=== PATIENT | male | born 1950 | race Caucasian/White ===

== ENCOUNTER 2017-05-03 08:31 | Inpatient (IN) | payer OTHER ==
[2017-05-03] MEDS: SOD CHLORIDE 0.9% 1,000 ML IV ×2 (08:00→18:58)
[2017-05-03] MEDS: LACTATED RINGER'S 1,000 ML IV* (08:00)
[2017-05-03] MEDS: CEFAZOLIN 2 GM/50 ML (PMX) 50 ML IVPB (08:00)
[~2017-05-03 08:31] MED LIST: ROCURONIUM 50 MG INJ
[2017-05-03] MEDS: TRANEXAMIC ACID 1,000 MG in DEXTROSE 5% 100 ML IVPB (10:00)
[2017-05-03] MEDS: TRANEXAMIC ACID 1,000 MG in DEXTROSE 5% 90 ML IV (10:00)
[2017-05-03] MEDS ORDERED: MIDAZOLAM 1 MG/ML 2 ML INJ ×2 (10:03→10:04)
[2017-05-03] MEDS ORDERED: ROCURONIUM 50 MG INJ ×2 (10:03→11:11)
[2017-05-03] MEDS ORDERED: PROPOFOL 20 ML (10:03)
[2017-05-03] MEDS ORDERED: CEFAZOLIN 1 GM INJ ×2 (10:03→13:48)
[2017-05-03] MEDS ORDERED: ROPIVACAINE 0.5 % 30 ML VIAL (10:04)
[2017-05-03] MEDS ORDERED: morphine SULFATE/PF (10 MG/10 ML) INJ (10:04)
[2017-05-03] MEDS ORDERED: VANCOMYCIN 1 GM (PMX) 250 ML (10:09)
[2017-05-03] MEDS ORDERED: PHENYLephrine (100 MCG/ML) 5ML SYG ×3 (10:20→11:03)
[2017-05-03] MEDS: VANCOMYCIN 1 GM INJ ×3 (10:30→14:00)
[2017-05-03] MEDS: TOBRAMYCIN 1.2 GM POWDER ×3 (10:30→14:00)
[2017-05-03] MEDS ORDERED: ONDANSETRON 4 MG INJ (10:43)
[2017-05-03] MEDS ORDERED: DEXAMETHASONE 4 MG/ML 1 ML INJ (10:43)
[2017-05-03] MEDS ORDERED: KETOROLAC 30 MG INJ (10:43)
[2017-05-03] MEDS ORDERED: METOCLOPRAMIDE 10 MG INJ (10:43)
[2017-05-03] MEDS ORDERED: ACETAMINOPHEN 1000MG/100ML IV 100 ML (11:11)
[2017-05-03] MEDS ORDERED: HETASTARCH 6% NACL 500 ML (11:11)
[2017-05-03] MEDS ORDERED: PHENYLephrine 10 MG INJ ×2 (11:27→14:39)
[2017-05-03] MEDS ORDERED: HYDROmorphONE 0.5 MG/0.5 ML SYG IV (12:00)
[2017-05-03] MEDS ORDERED: OXYCODONE/ACETAMINOPHEN (5/325) TAB PO ×2 (12:00)
[2017-05-03] MEDS ORDERED: NALOXONE (0.4 MG/ML) INJ IV ×2 (12:00→17:30)
[2017-05-03] MEDS ORDERED: EPHEDrine SULFATE 50 MG/5 ML SYG IV (12:00)
[2017-05-03] MEDS ORDERED: ONDANSETRON 4 MG INJ IV ×2 (12:00)
[2017-05-03] MEDS ORDERED: ALBUMIN HUMAN 5% 250 ML IV (12:00)
[2017-05-03] MEDS ORDERED: LABETALOL HCL 20MG INJ IV (12:00)
[2017-05-03] MEDS ORDERED: FENTAnyl 50 MCG/ML VIAL IV ×3 (12:00)
[2017-05-03] MEDS ORDERED: morphine 2 MG INJ IV ×2 (12:00)
[2017-05-03] MEDS ORDERED: NALBUPHINE HCL (10 MG/1 ML) INJ IV (12:00)
[2017-05-03] MEDS ORDERED: MEPERIDINE 25 MG INJ IV (12:00)
[2017-05-03] MEDS ORDERED: DIPHENHYDRAMINE 50 MG INJ IV ×2 (12:00)
[2017-05-03] MEDS ORDERED: HYDROCODONE/APAP (5/325) TAB PO (12:00)
[2017-05-03] MEDS ORDERED: ACETAMINOPHEN 500 MG TAB PO (12:00)
[2017-05-03] MEDS ORDERED: METOCLOPRAMIDE 10 MG INJ IV (12:00)
[2017-05-03] MEDS ORDERED: HYDROmorphONE (0.2 MG/ML) 10ML SYG IV ×3 (12:00)
[2017-05-03] MEDS: POLYMYXIN/BACITRACIN 1L IRRIG IRR (12:09)
[2017-05-03] MEDS: ROPIVACAINE 0.2% 60 ML, CLONIDINE 100 MCG, EPINEPHrine 0.3 MG, SOD CHLORIDE 0.9% 50 ML IRR (12:30)
[2017-05-03] MEDS ORDERED: ALBUMIN HUMAN 25% 100 ML (13:51)
[2017-05-03] MEDS ORDERED: SUGAMMADEX SODIUM 200 MG/2 ML VIAL IV (15:36)
[2017-05-03] MEDS ORDERED: oxyCODONE 5 MG TAB PO ×2 (17:30)
[2017-05-03] MEDS ORDERED: KETOROLAC 15 MG INJ IV (17:30)
[2017-05-03] MEDS ORDERED: VANCOMYCIN 1 GM (PMX) 250 ML IVPB (18:00)
[2017-05-03] MEDS: ACETAMINOPHEN 1000MG/100ML IV 100 ML IVPB (18:58)
[2017-05-03] MEDS ORDERED: hydrALAzine 20 MG INJ IV (19:30)
[2017-05-03] MEDS ORDERED: DEXTROSE 50% 50 ML SYRINGE IV ×2 (20:00)
[2017-05-03] MEDS ORDERED: GLUCAGON 1 MG INJ IM (20:00)
[2017-05-03] MEDS ORDERED: GLUCOSE GEL 15 GRAM TUBE PO ×2 (20:00)
[2017-05-03] MEDS ORDERED: GLUCOSE GEL 15 GRAM TUBE BUCCAL (20:00)
[2017-05-03] MEDS: CEFAZOLIN 1 GM/50 ML (PMX) 50 ML IVPB (20:15)
[2017-05-03] MEDS: INSULIN ASPART [NOVOLOG] 3 ML PEN SC (20:15)
[2017-05-03] MEDS: ACCU-CHEK XX (22:04)
[2017-05-03] MEDS: HYDROmorphONE 0.5 MG/0.5 ML SYG IV (23:42)
[2017-05-04] MEDS: ACETAMINOPHEN 1000MG/100ML IV 100 ML IVPB ×3 (01:47→18:47)
[2017-05-04] MEDS: CEFAZOLIN 1 GM/50 ML (PMX) 50 ML IVPB (03:13)
[2017-05-04] MEDS: HYDROmorphONE 0.5 MG/0.5 ML SYG IV (05:12)
[2017-05-04 05:29] LABS: ADD MAN DIFF? NO
[2017-05-04] MEDS: SOD CHLORIDE 0.9% 1,000 ML IV ×2 (05:33→18:03)
[2017-05-04 05:35] LABS: WHITE BLOOD COUNT 7.4 10^3/ul (4.8-10.8)
[2017-05-04 05:35] LABS: HEMATOCRIT 26.7 % (42.0-52.0); LYMPHOCYTES # 0.7 10^3/ul (0.8-2.9); LYMPHOCYTES % 9.8 % (15.0-51.0); MEAN CORPUSCULAR HEMOGLOBIN 28.6 pg (29.0-33.0); MEAN CORPUSCULAR HGB CONC 33.7 g/dl (32.0-37.0); MEAN CORPUSCULAR VOLUME 84.8 fl (82.0-101.0); MONOCYTE # 0.3 10^3/ul (0.3-0.9); MONOCYTES % 4.3 % (0.0-11.0); NEUTROPHIL # 6.3 10^3/ul (1.6-7.5); NEUTROPHILS % 85.8 % (39.0-77.0); PLATELET COUNT 180 10^3/UL (140-415); POSITIVE DIFF @See below; RED BLOOD COUNT 3.15 10^6/ul (4.70-6.10); RED CELL DISTRIBUTION WIDTH 13.1 % (11.5-14.5)
[2017-05-04 05:53] LABS: ANION GAP 14 (8-16); BLOOD UREA NITROGEN 23 mg/dl (7-20); CALCIUM 7.8 mg/dl (8.4-10.2); CARBON DIOXIDE 21 mmol/L (21-31); CHLORIDE 107 mmol/L (97-110); CREATININE 1.05 mg/dl (0.61-1.24); GLUCOSE 148 mg/dl (70-220); POTASSIUM 4.4 mmol/L (3.5-5.1); SODIUM 138 mmol/L (135-144)
[2017-05-04 05:55] LABS: INR 1.19; PROTIME 15.3 Sec (11.9-14.9); PT RATIO 1.2
[2017-05-04 07:23] LABS: HEMOGLOBIN A1C 5.7 % (0-5.9)
[2017-05-04] MEDS: INSULIN ASPART [NOVOLOG] 3 ML PEN SC ×4 (07:50→21:00)
[2017-05-04] MEDS: DOCUSATE SODIUM 100 MG CAP PO ×2 (08:35→20:22)
[2017-05-04] MEDS: ASPIRIN (EC) 325 MG TAB PO (08:35)
[2017-05-04] MEDS: oxyCODONE 5 MG TAB PO ×2 (11:49→16:25)
[2017-05-04] MEDS ORDERED: VANCOMYCIN IV PER PHARMACY XX (12:00)
[2017-05-04] MEDS: LIDOCAINE 1% (MPF) 5 ML VIAL SC (14:35)
[2017-05-04] MEDS: SOD CHLORIDE 0.9% 100 ML (15:20)
[2017-05-04] MEDS: VANCOMYCIN 1 GM 250 ML IVPB ×2 (16:13→18:48)
[2017-05-04] MEDS ORDERED: ONDANSETRON 4 MG INJ IV (17:30)
[2017-05-05] MEDS: ACETAMINOPHEN 1000MG/100ML IV 100 ML IVPB ×3 (01:35→18:15)
[2017-05-05] MEDS: HYDROmorphONE 1 MG/ML SYG IV (01:35)
[2017-05-05] MEDS: VANCOMYCIN 1 GM 250 ML IVPB ×2 (01:36→13:18)
[2017-05-05] MEDS: ACCU-CHEK XX (02:00)
[2017-05-05] MEDS: SOD CHLORIDE 0.9% 1,000 ML IV (04:38)
[2017-05-05 05:20] LABS: ADD MAN DIFF? NO
[2017-05-05 05:37] LABS: BASOPHILS % 0.2 % (0.0-2.0); HEMATOCRIT 26.2 % (42.0-52.0); HEMOGLOBIN 8.9 g/dl (14.0-18.0); LYMPHOCYTES # 1.2 10^3/ul (0.8-2.9); LYMPHOCYTES % 20.4 % (15.0-51.0); MEAN CORPUSCULAR HEMOGLOBIN 28.7 pg (29.0-33.0); MEAN CORPUSCULAR VOLUME 84.5 fl (82.0-101.0); MEAN PLATELET VOLUME 10.2 fl (7.4-10.4); MONOCYTE # 0.4 10^3/ul (0.3-0.9); MONOCYTES % 6.8 % (0.0-11.0); NEUTROPHIL # 4.3 10^3/ul (1.6-7.5); NEUTROPHILS % 72.3 % (39.0-77.0); PLATELET COUNT 171 10^3/UL (140-415); RED CELL DISTRIBUTION WIDTH 13.2 % (11.5-14.5)
[2017-05-05 05:37] LABS: WHITE BLOOD COUNT 5.9 10^3/ul (4.8-10.8)
[2017-05-05 06:15] LABS: ANION GAP 11 (8-16); BLOOD UREA NITROGEN 20 mg/dl (7-20); CALCIUM 8.4 mg/dl (8.4-10.2); CARBON DIOXIDE 26 mmol/L (21-31); CHLORIDE 109 mmol/L (97-110); CREATININE 1.06 mg/dl (0.61-1.24); GLUCOSE 112 mg/dl (70-220); INR 1.13; POTASSIUM 3.9 mmol/L (3.5-5.1); PROTIME 14.7 Sec (11.9-14.9); PT RATIO 1.1; SODIUM 142 mmol/L (135-144)
[2017-05-05 06:17] LABS: MAGNESIUM 1.9 mg/dl (1.7-2.5)
[2017-05-05 06:17] LABS: PHOSPHORUS 2.8 mg/dl (2.5-4.9)
[2017-05-05] MEDS: INSULIN ASPART [NOVOLOG] 3 ML PEN SC ×4 (07:50→21:00)
[2017-05-05] MEDS: ASPIRIN (EC) 325 MG TAB PO (08:43)
[2017-05-05] MEDS: DOCUSATE SODIUM 100 MG CAP PO ×2 (08:43→20:11)
[2017-05-05] MEDS: oxyCODONE 5 MG TAB PO ×2 (12:14→22:35)
[2017-05-06 01:14] LABS: VANCOMYCIN,TROUGH 17.3 ug/ml (10.0-20.0)
[2017-05-06] MEDS: VANCOMYCIN 1 GM 250 ML IVPB (01:23)
[2017-05-06] MEDS: ACCU-CHEK XX (01:28)
[2017-05-06] MEDS: ACETAMINOPHEN 1000MG/100ML IV 100 ML IVPB ×3 (01:30→18:24)
[2017-05-06 05:17] LABS: ADD MAN DIFF? NO
[2017-05-06 05:19] LABS: BASOPHILS % 0.4 % (0.0-2.0); HEMATOCRIT 26.5 % (42.0-52.0); LYMPHOCYTES # 1.5 10^3/ul (0.8-2.9); LYMPHOCYTES % 30.3 % (15.0-51.0); MEAN CORPUSCULAR HEMOGLOBIN 28.6 pg (29.0-33.0); MEAN CORPUSCULAR VOLUME 84.1 fl (82.0-101.0); MEAN PLATELET VOLUME 9.9 fl (7.4-10.4); MONOCYTE # 0.4 10^3/ul (0.3-0.9); MONOCYTES % 7.2 % (0.0-11.0); NEUTROPHIL # 3.1 10^3/ul (1.6-7.5); NEUTROPHILS % 61.7 % (39.0-77.0); PLATELET COUNT 167 10^3/UL (140-415); RED BLOOD COUNT 3.15 10^6/ul (4.70-6.10); RED CELL DISTRIBUTION WIDTH 13.4 % (11.5-14.5)
[2017-05-06 05:43] LABS: INR 1.09; PROTIME 14.2 Sec (11.9-14.9); PT RATIO 1.1
[2017-05-06 06:02] LABS: ANION GAP 13 (8-16); BLOOD UREA NITROGEN 15 mg/dl (7-20); CALCIUM 8.7 mg/dl (8.4-10.2); CARBON DIOXIDE 26 mmol/L (21-31); CHLORIDE 107 mmol/L (97-110); CREATININE 0.96 mg/dl (0.61-1.24); GLUCOSE 99 mg/dl (70-220); POTASSIUM 3.5 mmol/L (3.5-5.1); SODIUM 142 mmol/L (135-144)
[2017-05-06] MEDS: INSULIN ASPART [NOVOLOG] 3 ML PEN SC ×4 (08:59→20:40)
[2017-05-06] MEDS: ASPIRIN (EC) 325 MG TAB PO (09:19)
[2017-05-06] MEDS: DOCUSATE SODIUM 100 MG CAP PO ×2 (09:19→20:40)
[2017-05-06] MEDS: VANCOMYCIN 750 MG in DEXTROSE 5% 150 ML IVPB (14:28)
[2017-05-06] MEDS: oxyCODONE 5 MG TAB PO ×2 (16:27→20:43)
[2017-05-07] MEDS: VANCOMYCIN 750 MG in DEXTROSE 5% 150 ML IVPB ×2 (00:26→12:45)
[2017-05-07] MEDS: ACCU-CHEK XX (01:53)
[2017-05-07] MEDS: ACETAMINOPHEN 1000MG/100ML IV 100 ML IVPB ×3 (03:05→18:52)
[2017-05-07] MEDS: oxyCODONE 5 MG TAB PO ×3 (03:10→22:53)
[2017-05-07 05:36] LABS: ADD MAN DIFF? NO
[2017-05-07 05:37] LABS: BASOPHILS % 0.4 % (0.0-2.0); EOSINOPHILS # 0.3 10^3/ul (0.0-0.5); EOSINOPHILS % 5.6 % (0.0-7.0); HEMATOCRIT 28.8 % (42.0-52.0); HEMOGLOBIN 9.7 g/dl (14.0-18.0); LYMPHOCYTES # 1.5 10^3/ul (0.8-2.9); LYMPHOCYTES % 27.5 % (15.0-51.0); MEAN CORPUSCULAR HEMOGLOBIN 28.2 pg (29.0-33.0); MEAN CORPUSCULAR HGB CONC 33.7 g/dl (32.0-37.0); MEAN CORPUSCULAR VOLUME 83.7 fl (82.0-101.0); MEAN PLATELET VOLUME 9.6 fl (7.4-10.4); MONOCYTE # 0.5 10^3/ul (0.3-0.9); MONOCYTES % 8.8 % (0.0-11.0); NEUTROPHIL # 3.1 10^3/ul (1.6-7.5); NEUTROPHILS % 57.1 % (39.0-77.0); PLATELET COUNT 196 10^3/UL (140-415); RED BLOOD COUNT 3.44 10^6/ul (4.70-6.10); RED CELL DISTRIBUTION WIDTH 13.4 % (11.5-14.5)
[2017-05-07 05:37] LABS: WHITE BLOOD COUNT 5.3 10^3/ul (4.8-10.8)
[2017-05-07 05:58] LABS: INR 1.11; PROTIME 14.5 Sec (11.9-14.9); PT RATIO 1.1
[2017-05-07 06:02] LABS: ANION GAP 13 (8-16); BLOOD UREA NITROGEN 12 mg/dl (7-20); CALCIUM 8.9 mg/dl (8.4-10.2); CARBON DIOXIDE 27 mmol/L (21-31); CHLORIDE 104 mmol/L (97-110); CREATININE 0.94 mg/dl (0.61-1.24); GLUCOSE 104 mg/dl (70-220); POTASSIUM 3.5 mmol/L (3.5-5.1); SODIUM 140 mmol/L (135-144)
[2017-05-07] MEDS: ASPIRIN (EC) 325 MG TAB PO (09:08)
[2017-05-07] MEDS: INSULIN ASPART [NOVOLOG] 3 ML PEN SC ×4 (09:09→20:26)
[2017-05-07] MEDS: DOCUSATE SODIUM 100 MG CAP PO ×2 (12:45→20:26)
[2017-05-08] MEDS: VANCOMYCIN 750 MG in DEXTROSE 5% 150 ML IVPB ×2 (01:20→13:13)
[2017-05-08] MEDS: ACCU-CHEK XX (02:30)
[2017-05-08] MEDS: ACETAMINOPHEN 1000MG/100ML IV 100 ML IVPB ×2 (03:11→12:45)
[2017-05-08] MEDS: oxyCODONE 5 MG TAB PO (03:11)
[2017-05-08 05:41] LABS: ADD MAN DIFF? NO; BASOPHILS % 0.5 % (0.0-2.0); EOSINOPHILS # 0.3 10^3/ul (0.0-0.5); HEMATOCRIT 27.2 % (42.0-52.0); HEMOGLOBIN 9.1 g/dl (14.0-18.0); LYMPHOCYTES # 1.1 10^3/ul (0.8-2.9); MEAN CORPUSCULAR HEMOGLOBIN 28.2 pg (29.0-33.0); MEAN CORPUSCULAR HGB CONC 33.5 g/dl (32.0-37.0); MEAN CORPUSCULAR VOLUME 84.2 fl (82.0-101.0); MEAN PLATELET VOLUME 9.4 fl (7.4-10.4); MONOCYTE # 0.3 10^3/ul (0.3-0.9); MONOCYTES % 8.2 % (0.0-11.0); NEUTROPHIL # 2.4 10^3/ul (1.6-7.5); NEUTROPHILS % 57.8 % (39.0-77.0); PLATELET COUNT 185 10^3/UL (140-415); RED BLOOD COUNT 3.23 10^6/ul (4.70-6.10); RED CELL DISTRIBUTION WIDTH 13.4 % (11.5-14.5)
[2017-05-08 05:41] LABS: WHITE BLOOD COUNT 4.2 10^3/ul (4.8-10.8)
[2017-05-08 06:05] LABS: INR 1.13; PROTIME 14.7 Sec (11.9-14.9); PT RATIO 1.1
[2017-05-08 06:27] LABS: ANION GAP 12 (8-16); BLOOD UREA NITROGEN 11 mg/dl (7-20); CALCIUM 8.8 mg/dl (8.4-10.2); CARBON DIOXIDE 27 mmol/L (21-31); CHLORIDE 105 mmol/L (97-110); CREATININE 1.01 mg/dl (0.61-1.24); GLUCOSE 90 mg/dl (70-220); POTASSIUM 3.4 mmol/L (3.5-5.1); SODIUM 141 mmol/L (135-144)
[2017-05-08] MEDS: INSULIN ASPART [NOVOLOG] 3 ML PEN SC ×2 (08:57→13:20)
[2017-05-08] MEDS: DOCUSATE SODIUM 100 MG CAP PO (09:24)
[2017-05-08] MEDS: ASPIRIN (EC) 325 MG TAB PO (09:24)
[2017-05-08] MEDS: POLYETHYLENE GLYCOL 17 GM PACKET PO (12:30)
[2017-05-08 12:45] LABS: VANCOMYCIN,TROUGH 12.4 ug/ml (10.0-20.0)
[2017-05-08] MEDS: BISACODYL 10 MG SUPP PR (12:45)
[2017-05-08] MEDS: SENNA TAB PO (13:00)
[2017-05-08] MEDS ORDERED: LEVOFLOXACIN 500 MG TAB PO (14:00)
[2017-05-08] MEDS: ERTAPENEM SODIUM 1 GM in SOD CHLORIDE 0.9% 100 ML IVPB (15:36)
[2017-05-09] MEDS ORDERED: LEVOFLOXACIN 500 MG TAB PO (06:00)
== END 2017-05-08 17:55 | DRG 464 ==
LOC: REC 08:31 → MS1 18:27
PROVIDERS: Orthopaedic Surgery Adult Reconstructive Orthopaedic Surgery
PROC: 0SPC0JZ Removal of Synthetic Substitute from Right Knee Joint, Open Approach (ICD-10-PCS; principal; 2017-05-03 10:00)
PROC: 0QBD0ZZ Excision of Right Patella, Open Approach (ICD-10-PCS; 2017-05-03 10:00)
PROC: 0QBB0ZX Excision of Right Lower Femur, Open Approach, Diagnostic (ICD-10-PCS; 2017-05-03 10:00)
PROC: 0QBG0ZX Excision of Right Tibia, Open Approach, Diagnostic (ICD-10-PCS; 2017-05-03 10:00)
PROC: 0JBN0ZX Excision of Right Lower Leg Subcutaneous Tissue and Fascia, Open Approach, Diagnostic (ICD-10-PCS; 2017-05-03 10:00)
PROC: 0SHC08Z Insertion of Spacer into Right Knee Joint, Open Approach (ICD-10-PCS; 2017-05-03 10:00)
PROC: 0S9C3ZX Drainage of Right Knee Joint, Percutaneous Approach, Diagnostic (ICD-10-PCS; 2017-05-03 10:00)
PROC: 02HV33Z Insertion of Infusion Device into Superior Vena Cava, Percutaneous Approach (ICD-10-PCS; 2017-05-03 10:10)
DX: T84.53XA Infection and inflammatory reaction due to internal right knee prosthesis, initial encounter (principal); D62 Acute posthemorrhagic anemia; I10 Essential (primary) hypertension; T84.032A Mechanical loosening of internal right knee prosthetic joint, initial encounter; E11.9 Type 2 diabetes mellitus without complications; K59.00 Constipation, unspecified; Z96.653 Presence of artificial knee joint, bilateral; Z87.891 Personal history of nicotine dependence
CPT/HCPCS: 36569; 71045; 73560; 76937; 80048; 80202; 82962; 83036; 83735; 84100; 85025; 85610; 86850; 86900; 86901; 86920; 87070; 87075; 87081; 87086; 87102; 87116; 88300; 97110; 97116; 97163; 97530

== ENCOUNTER 2017-08-14 08:33 | Inpatient (IN) | payer OTHER ==
[2017-08-14] MEDS: LACTATED RINGER'S 1,000 ML IV* (10:00)
[2017-08-14] MEDS: LANSOPRAZOLE 30 MG CAP PO (10:00)
[2017-08-14] MEDS: ONDANSETRON 4 MG INJ IV ×3 (10:00→19:26)
[2017-08-14] MEDS: CEFAZOLIN 2 GM/50 ML (PMX) 50 ML IVPB (10:00)
[2017-08-14] MEDS: TRANEXAMIC ACID 2,000 MG in SOD CHLORIDE 0.9% 100 ML IVPB (11:00)
[2017-08-14] MEDS ORDERED: SOD CHLORIDE 0.9% 50 ML, TRANEXAMIC ACID 2,000 MG IRR (12:00)
[2017-08-14] MEDS ORDERED: BUPIVACAINE 0.75%/DEXT (SPINAL) 2 ML INJ (12:56)
[2017-08-14] MEDS ORDERED: morphine SULFATE/PF (10 MG/10 ML) INJ (12:56)
[2017-08-14] MEDS ORDERED: TRANEXAMIC ACID 1,000 MG in DEXTROSE 5% 100 ML IV (13:00)
[2017-08-14] MEDS: TRANEXAMIC ACID 1,000 MG in SOD CHLORIDE 0.9% 100 ML IV (13:00)
[2017-08-14] MEDS ORDERED: PHENYLephrine (100 MCG/ML) 5ML SYG (13:24)
[2017-08-14] MEDS ORDERED: ROCURONIUM 50 MG INJ (13:32)
[2017-08-14] MEDS ORDERED: CEFAZOLIN 1 GM INJ (13:32)
[2017-08-14] MEDS ORDERED: PROPOFOL 20 ML (13:32)
[2017-08-14] MEDS ORDERED: SUCCINYLCHOLINE CHLORIDE 100 MG/5 ML SYG IV (13:32)
[2017-08-14] MEDS ORDERED: SUGAMMADEX SODIUM 200 MG/2 ML VIAL IV (13:33)
[2017-08-14] MEDS ORDERED: LIDOCAINE 100 MG SYRINGE (13:33)
[2017-08-14] MEDS: TRANEXAMIC ACID 1,000 MG in NS 100 ML INTRA-OP X1 IVPB ×2 (13:51→17:34)
[2017-08-14] MEDS: TOBRAMYCIN 1.2 GM POWDER (14:38)
[2017-08-14] MEDS: VANCOMYCIN 1 GM INJ (14:39)
[2017-08-14] MEDS: POLYMYXIN/BACITRACIN 1L IRRIG (14:41)
[2017-08-14] MEDS ORDERED: GLUCAGON 1 MG INJ IM (15:00)
[2017-08-14] MEDS ORDERED: DEXTROSE 50% 50 ML SYRINGE IV ×2 (15:00)
[2017-08-14] MEDS ORDERED: GLUCOSE GEL 15 GRAM TUBE PO ×2 (15:00)
[2017-08-14] MEDS ORDERED: GLUCOSE GEL 15 GRAM TUBE BUCCAL (15:00)
[2017-08-14] MEDS ORDERED: METOCLOPRAMIDE 10 MG INJ IV (16:30)
[2017-08-14] MEDS ORDERED: DIPHENHYDRAMINE 50 MG INJ IV ×2 (16:30→19:00)
[2017-08-14] MEDS ORDERED: HYDROmorphONE (0.2 MG/ML) 10ML SYG IV ×3 (16:30)
[2017-08-14] MEDS ORDERED: MEPERIDINE 25 MG INJ IV (16:30)
[2017-08-14] MEDS ORDERED: ALBUTEROL 0.083% (NEB) 2.5 MG/3 ML AMP HHN (16:30)
[2017-08-14] MEDS ORDERED: FENTAnyl 50 MCG/ML VIAL IV ×3 (16:30)
[2017-08-14] MEDS: ROPIVACAINE 0.2% 60 ML, CLONIDINE 100 MCG, EPINEPHrine 0.3 MG, KETOROLAC 30 MG, SOD CHL... INJ (17:46)
[2017-08-14] MEDS ORDERED: CEFAZOLIN 1 GM/50 ML (PMX) 50 ML IVPB (19:00)
[2017-08-14] MEDS: ACETAMINOPHEN 1000MG/100ML IV 100 ML IVPB ×2 (19:00→19:28)
[2017-08-14] MEDS ORDERED: NA PHOSPHATE/BIPHOS 133 ML ENEMA PR (19:00)
[2017-08-14] MEDS ORDERED: oxyCODONE 5 MG TAB PO ×2 (19:00)
[2017-08-14] MEDS ORDERED: MAGNESIUM HYDROXIDE 30ML CUP PO (19:00)
[2017-08-14] MEDS ORDERED: NALOXONE (0.4 MG/ML) INJ IV (19:00)
[2017-08-14] MEDS ORDERED: KETOROLAC 15 MG INJ IV (19:00)
[2017-08-14] MEDS ORDERED: BISACODYL 10 MG SUPP PR (19:00)
[2017-08-14] MEDS ORDERED: DOCUSATE SODIUM 100 MG CAP PO (19:10)
[2017-08-14] MEDS: ASPIRIN (EC) 325 MG TAB PO (19:26)
[2017-08-14] MEDS: DOCUSATE SODIUM 100 MG CAP PO (19:27)
[2017-08-14] MEDS: VANCOMYCIN 1 GM (PMX) 250 ML IVPB (20:00)
[2017-08-14] MEDS: INSULIN ASPART [NOVOLOG] 3 ML PEN SC (21:00)
[2017-08-14] MEDS ORDERED: PIPER-TAZO 3.375 GM IV (PMX) 100 ML IVPB (22:00)
[2017-08-14] MEDS: SOD CHLORIDE 0.9% 1,000 ML IV (22:17)
[2017-08-14] MEDS: PIPER-TAZO 3.375 GM IV (PMX) 100 ML IVPB (22:18)
[2017-08-14] MEDS: GABAPENTIN 100 MG CAP PO (22:18)
[2017-08-14 22:48] LABS: HEMOGLOBIN A1C 5.6 % (0-5.9)
[2017-08-15] MEDS: ONDANSETRON 4 MG INJ IV ×3 (01:35→13:00)
[2017-08-15] MEDS: ACCU-CHEK XX ×2 (01:39→02:00)
[2017-08-15] MEDS: ACETAMINOPHEN 1000MG/100ML IV 100 ML IVPB ×3 (02:23→18:20)
[2017-08-15] MEDS: VANCOMYCIN 1 GM (PMX) 250 ML IVPB (02:52)
[2017-08-15 05:38] LABS: ADD MAN DIFF? NO
[2017-08-15 05:47] LABS: BASOPHILS % 0.3 % (0.0-2.0); EOSINOPHILS % 0.5 % (0.0-7.0); HEMATOCRIT 31.7 % (42.0-52.0); HEMOGLOBIN 10.4 g/dl (14.0-18.0); LYMPHOCYTES # 0.9 10^3/ul (0.8-2.9); LYMPHOCYTES % 14.9 % (15.0-51.0); MEAN CORPUSCULAR HEMOGLOBIN 27.5 pg (29.0-33.0); MEAN CORPUSCULAR HGB CONC 32.8 g/dl (32.0-37.0); MEAN CORPUSCULAR VOLUME 83.9 fl (82.0-101.0); MEAN PLATELET VOLUME 10.6 fl (7.4-10.4); MONOCYTE # 0.8 10^3/ul (0.3-0.9); MONOCYTES % 12.9 % (0.0-11.0); NEUTROPHIL # 4.1 10^3/ul (1.6-7.5); NEUTROPHILS % 71.1 % (39.0-77.0); PLATELET COUNT 142 10^3/UL (140-415); RED BLOOD COUNT 3.78 10^6/ul (4.70-6.10); RED CELL DISTRIBUTION WIDTH 13.8 % (11.5-14.5)
[2017-08-15 05:47] LABS: WHITE BLOOD COUNT 5.8 10^3/ul (4.8-10.8)
[2017-08-15] MEDS ORDERED: VANCOMYCIN 1 GM (PMX) 250 ML IVPB (06:00)
[2017-08-15 06:03] LABS: ANION GAP 13 (8-16); BLOOD UREA NITROGEN 21 mg/dl (7-20); CALCIUM 8.3 mg/dl (8.4-10.2); CARBON DIOXIDE 27 mmol/L (21-31); CHLORIDE 105 mmol/L (97-110); CREATININE 1.64 mg/dl (0.61-1.24); GLUCOSE 114 mg/dl (70-220); MAGNESIUM 1.6 mg/dl (1.7-2.5); PHOSPHORUS 4.6 mg/dl (2.5-4.9); POTASSIUM 4.5 mmol/L (3.5-5.1); SODIUM 140 mmol/L (135-144)
[2017-08-15] MEDS: PIPER-TAZO 3.375 GM IV (PMX) 100 ML IVPB ×3 (06:25→21:33)
[2017-08-15] MEDS: BETHANECHOL 25 MG TAB PO (06:27)
[2017-08-15] MEDS: INSULIN ASPART [NOVOLOG] 3 ML PEN SC ×4 (07:50→21:00)
[2017-08-15] MEDS: CELECOXIB 200 MG CAP PO ×2 (08:54→21:23)
[2017-08-15] MEDS: DOCUSATE SODIUM 100 MG CAP PO ×2 (08:55→21:23)
[2017-08-15] MEDS: ASPIRIN (EC) 325 MG TAB PO (08:55)
[2017-08-15] MEDS: FERROUS FUMARATE (SR) TAB PO ×2 (08:55→21:23)
[2017-08-15] MEDS: LOSARTAN 50 MG TAB PO (08:57)
[2017-08-15] MEDS: HYDROCHLOROTHIAZIDE 25 MG TAB PO (08:57)
[2017-08-15] MEDS: SOD CHLORIDE 0.9% 1,000 ML IV ×2 (08:58→19:46)
[2017-08-15 10:06] LABS: ADD UMIC YES; UR ASCORBIC ACID NEGATIVE (NEGATIVE); UR BACTERIA FEW /HPF (NONE SEEN); UR BILIRUBIN (Dip) NEGATIVE (NEGATIVE); UR BLOOD (Dip) 3+ mg/dL (NEGATIVE); UR CELLULAR CAST FEW /HPF (NONE SEEN); UR CLARITY CLOUDY (CLEAR); UR COLOR YELLOW (YELLOW); UR GLUCOSE (Dip) 1+ mg/dL (NEGATIVE); UR KETONES (Dip) NEGATIVE (NEGATIVE); UR LEUKOCYTE ESTERASE (Dip) NEGATIVE Leu/ul (NEGATIVE); UR MUCUS FEW /HPF (NONE SEEN); UR NITRITE (Dip) NEGATIVE (NEGATIVE); UR NONSQUAMOUS EPITHELIAL CELL 2 /HPF (NONE SEEN); UR RBC 173 /HPF (0-5); UR SPECIFIC GRAVITY (Dip) 1.027 (1.003-1.030); UR SQUAMOUS EPITHELIAL CELL FEW /HPF (FEW); UR TOTAL PROTEIN (Dip) 2+ mg/dl (NEGATIVE); UR UROBILINOGEN (Dip) NEGATIVE (NEGATIVE); UR WBC 36 /HPF (0-5)
[2017-08-15] MEDS: MAGNESIUM OXIDE 400 MG TAB PO (14:36)
[2017-08-15] MEDS: GABAPENTIN 100 MG CAP PO (21:23)
[2017-08-16] MEDS: ACCU-CHEK XX (02:00)
[2017-08-16] MEDS: ACETAMINOPHEN 1000MG/100ML IV 100 ML IVPB ×2 (02:26→12:47)
[2017-08-16] MEDS: VANCOMYCIN 1 GM (PMX) 250 ML IVPB (02:56)
[2017-08-16 05:55] LABS: ADD MAN DIFF? NO
[2017-08-16] MEDS: PIPER-TAZO 3.375 GM IV (PMX) 100 ML IVPB ×3 (06:02→21:07)
[2017-08-16] MEDS: PANTOPRAZOLE (EC) 40 MG TAB PO (06:02)
[2017-08-16 06:08] LABS: BASOPHILS % 0.5 % (0.0-2.0); EOSINOPHILS # 0.2 10^3/ul (0.0-0.5); EOSINOPHILS % 5.6 % (0.0-7.0); HEMATOCRIT 29.3 % (42.0-52.0); HEMOGLOBIN 9.8 g/dl (14.0-18.0); LYMPHOCYTES # 0.9 10^3/ul (0.8-2.9); MEAN CORPUSCULAR HEMOGLOBIN 27.8 pg (29.0-33.0); MEAN CORPUSCULAR HGB CONC 33.4 g/dl (32.0-37.0); MEAN PLATELET VOLUME 10.8 fl (7.4-10.4); MONOCYTE # 0.5 10^3/ul (0.3-0.9); MONOCYTES % 12.4 % (0.0-11.0); NEUTROPHIL # 2.5 10^3/ul (1.6-7.5); NEUTROPHILS % 59.3 % (39.0-77.0); PLATELET COUNT 130 10^3/UL (140-415); RED BLOOD COUNT 3.53 10^6/ul (4.70-6.10); RED CELL DISTRIBUTION WIDTH 13.7 % (11.5-14.5)
[2017-08-16 06:08] LABS: WHITE BLOOD COUNT 4.3 10^3/ul (4.8-10.8)
[2017-08-16 06:35] LABS: BLOOD UREA NITROGEN 25 mg/dl (7-20)
[2017-08-16] MEDS: INSULIN ASPART [NOVOLOG] 3 ML PEN SC ×4 (08:45→20:59)
[2017-08-16] MEDS: ASPIRIN (EC) 325 MG TAB PO (09:48)
[2017-08-16] MEDS: FERROUS FUMARATE (SR) TAB PO ×2 (09:48→20:58)
[2017-08-16] MEDS: DOCUSATE SODIUM 100 MG CAP PO ×2 (09:48→20:58)
[2017-08-16] MEDS: oxyCODONE 5 MG TAB PO (09:48)
[2017-08-16 15:48] LABS: CREATININE,URINE RANDOM 51.11 mg/dl (20-370)
[2017-08-16 18:15] LABS: SODIUM,URINE RANDOM 65 mmol/L (30-90)
[2017-08-16] MEDS: GABAPENTIN 100 MG CAP PO (20:58)
[2017-08-17] MEDS: ACCU-CHEK XX (02:00)
[2017-08-17] MEDS: PIPER-TAZO 3.375 GM IV (PMX) 100 ML IVPB ×3 (05:13→22:20)
[2017-08-17] MEDS: PANTOPRAZOLE (EC) 40 MG TAB PO (05:14)
[2017-08-17] MEDS: SENNA/DOCUSATE NA (8.6MG/50MG) TAB PO (05:14)
[2017-08-17 05:23] LABS: ADD MAN DIFF? NO
[2017-08-17 05:27] LABS: BASOPHILS % 0.6 % (0.0-2.0); EOSINOPHILS # 0.3 10^3/ul (0.0-0.5); EOSINOPHILS % 6.4 % (0.0-7.0); HEMATOCRIT 32.3 % (42.0-52.0); HEMOGLOBIN 10.6 g/dl (14.0-18.0); LYMPHOCYTES # 0.9 10^3/ul (0.8-2.9); MEAN CORPUSCULAR HEMOGLOBIN 27.6 pg (29.0-33.0); MEAN CORPUSCULAR HGB CONC 32.8 g/dl (32.0-37.0); MEAN CORPUSCULAR VOLUME 84.1 fl (82.0-101.0); MEAN PLATELET VOLUME 10.6 fl (7.4-10.4); MONOCYTE # 0.6 10^3/ul (0.3-0.9); MONOCYTES % 12.1 % (0.0-11.0); NEUTROPHIL # 2.8 10^3/ul (1.6-7.5); NEUTROPHILS % 60.3 % (39.0-77.0); PLATELET COUNT 153 10^3/UL (140-415); RED BLOOD COUNT 3.84 10^6/ul (4.70-6.10); RED CELL DISTRIBUTION WIDTH 13.6 % (11.5-14.5)
[2017-08-17 05:27] LABS: WHITE BLOOD COUNT 4.7 10^3/ul (4.8-10.8)
[2017-08-17 05:53] LABS: ANION GAP 12 (8-16); BLOOD UREA NITROGEN 16 mg/dl (7-20); CALCIUM 8.8 mg/dl (8.4-10.2); CARBON DIOXIDE 30 mmol/L (21-31); CHLORIDE 106 mmol/L (97-110); CREATININE 1.49 mg/dl (0.61-1.24); GLUCOSE 139 mg/dl (70-220); MAGNESIUM 1.6 mg/dl (1.7-2.5); PHOSPHORUS 4.3 mg/dl (2.5-4.9); SODIUM 144 mmol/L (135-144)
[2017-08-17] MEDS: INSULIN ASPART [NOVOLOG] 3 ML PEN SC ×4 (07:50→20:53)
[2017-08-17] MEDS: ASPIRIN (EC) 325 MG TAB PO (08:34)
[2017-08-17] MEDS: FERROUS FUMARATE (SR) TAB PO ×2 (08:34→20:46)
[2017-08-17] MEDS: DOCUSATE SODIUM 100 MG CAP PO ×2 (08:35→20:46)
[2017-08-17] MEDS: MAGNESIUM SULFATE 2 GM/50 ML 50 ML IVPB (09:26)
[2017-08-17] MEDS: GABAPENTIN 100 MG CAP PO (20:46)
[2017-08-18] MEDS: ACCU-CHEK XX (02:00)
[2017-08-18 05:29] LABS: WHITE BLOOD COUNT 4.5 10^3/ul (4.8-10.8)
[2017-08-18 05:29] LABS: ADD MAN DIFF? NO; BASOPHILS % 0.4 % (0.0-2.0); EOSINOPHILS # 0.3 10^3/ul (0.0-0.5); EOSINOPHILS % 6.7 % (0.0-7.0); HEMATOCRIT 32.4 % (42.0-52.0); HEMOGLOBIN 11.1 g/dl (14.0-18.0); LYMPHOCYTES # 1.1 10^3/ul (0.8-2.9); LYMPHOCYTES % 25.3 % (15.0-51.0); MEAN CORPUSCULAR HGB CONC 34.3 g/dl (32.0-37.0); MEAN CORPUSCULAR VOLUME 81.8 fl (82.0-101.0); MEAN PLATELET VOLUME 9.7 fl (7.4-10.4); MONOCYTE # 0.5 10^3/ul (0.3-0.9); MONOCYTES % 10.1 % (0.0-11.0); NEUTROPHIL # 2.6 10^3/ul (1.6-7.5); NEUTROPHILS % 57.3 % (39.0-77.0); PLATELET COUNT 178 10^3/UL (140-415); RED BLOOD COUNT 3.96 10^6/ul (4.70-6.10); RED CELL DISTRIBUTION WIDTH 13.3 % (11.5-14.5)
[2017-08-18] MEDS: PANTOPRAZOLE (EC) 40 MG TAB PO (05:50)
[2017-08-18] MEDS: PIPER-TAZO 3.375 GM IV (PMX) 100 ML IVPB ×3 (05:50→21:42)
[2017-08-18 05:56] LABS: ANION GAP 12 (8-16); BLOOD UREA NITROGEN 9 mg/dl (7-20); CALCIUM 9.5 mg/dl (8.4-10.2); CARBON DIOXIDE 33 mmol/L (21-31); CHLORIDE 104 mmol/L (97-110); CREATININE 1.27 mg/dl (0.61-1.24); GLUCOSE 96 mg/dl (70-220); MAGNESIUM 1.6 mg/dl (1.7-2.5); POTASSIUM 3.6 mmol/L (3.5-5.1); SODIUM 145 mmol/L (135-144)
[2017-08-18] MEDS: INSULIN ASPART [NOVOLOG] 3 ML PEN SC ×4 (07:50→21:00)
[2017-08-18] MEDS: FERROUS FUMARATE (SR) TAB PO ×2 (08:47→20:59)
[2017-08-18] MEDS: ASPIRIN (EC) 325 MG TAB PO (08:47)
[2017-08-18] MEDS: MAGNESIUM OXIDE 400 MG TAB PO (09:41)
[2017-08-18] MEDS: LOSARTAN 50 MG TAB PO (15:44)
[2017-08-18] MEDS: GABAPENTIN 100 MG CAP PO (20:59)
[2017-08-19] MEDS: ACCU-CHEK XX (02:00)
[2017-08-19 05:21] LABS: ADD MAN DIFF? NO
[2017-08-19 05:24] LABS: WHITE BLOOD COUNT 5.4 10^3/ul (4.8-10.8)
[2017-08-19 05:24] LABS: BASOPHILS % 0.6 % (0.0-2.0); EOSINOPHILS # 0.3 10^3/ul (0.0-0.5); EOSINOPHILS % 5.6 % (0.0-7.0); HEMATOCRIT 32.1 % (42.0-52.0); HEMOGLOBIN 10.9 g/dl (14.0-18.0); LYMPHOCYTES # 1.2 10^3/ul (0.8-2.9); LYMPHOCYTES % 21.5 % (15.0-51.0); MEAN CORPUSCULAR HEMOGLOBIN 27.3 pg (29.0-33.0); MEAN CORPUSCULAR VOLUME 80.5 fl (82.0-101.0); MEAN PLATELET VOLUME 9.6 fl (7.4-10.4); MONOCYTE # 0.5 10^3/ul (0.3-0.9); MONOCYTES % 9.6 % (0.0-11.0); NEUTROPHIL # 3.4 10^3/ul (1.6-7.5); NEUTROPHILS % 62.5 % (39.0-77.0); PLATELET COUNT 189 10^3/UL (140-415); RED BLOOD COUNT 3.99 10^6/ul (4.70-6.10); RED CELL DISTRIBUTION WIDTH 13.5 % (11.5-14.5)
[2017-08-19] MEDS: PANTOPRAZOLE (EC) 40 MG TAB PO (05:33)
[2017-08-19] MEDS: PIPER-TAZO 3.375 GM IV (PMX) 100 ML IVPB ×2 (05:33→14:53)
[2017-08-19 05:34] LABS: ANION GAP 12 (8-16); BLOOD UREA NITROGEN 9 mg/dl (7-20); CALCIUM 9.7 mg/dl (8.4-10.2); CARBON DIOXIDE 33 mmol/L (21-31); CHLORIDE 104 mmol/L (97-110); CREATININE 1.21 mg/dl (0.61-1.24); GLUCOSE 102 mg/dl (70-220); MAGNESIUM 1.6 mg/dl (1.7-2.5); PHOSPHORUS 4.2 mg/dl (2.5-4.9); POTASSIUM 3.6 mmol/L (3.5-5.1); SODIUM 145 mmol/L (135-144)
[2017-08-19] MEDS: INSULIN ASPART [NOVOLOG] 3 ML PEN SC ×2 (09:20→13:08)
[2017-08-19] MEDS: FERROUS FUMARATE (SR) TAB PO (09:21)
[2017-08-19] MEDS: LOSARTAN 50 MG TAB PO (09:21)
[2017-08-19] MEDS: ASPIRIN (EC) 325 MG TAB PO (09:21)
[2017-08-19] MEDS: HYDROCHLOROTHIAZIDE 25 MG TAB PO (09:21)
[2017-08-19] MEDS: ACETAMINOPHEN 325 MG TAB PO (10:14)
[2017-08-19] MEDS: MAGNESIUM OXIDE 400 MG TAB PO (10:14)
== END 2017-08-19 15:05 | disposition home health service (06) | DRG 467 ==
LOC: REC 08:33 → MS1 21:20
PROVIDERS: Orthopaedic Surgery Adult Reconstructive Orthopaedic Surgery
PROC: 0SPC0JZ Removal of Synthetic Substitute from Right Knee Joint, Open Approach (ICD-10-PCS; principal; 2017-08-14 12:00)
PROC: 0SRC0J9 Replacement of Right Knee Joint with Synthetic Substitute, Cemented, Open Approach (ICD-10-PCS; 2017-08-14 12:00)
DX: T84.53XA Infection and inflammatory reaction due to internal right knee prosthesis, initial encounter (principal); D62 Acute posthemorrhagic anemia; N17.9 Acute kidney failure, unspecified; E11.9 Type 2 diabetes mellitus without complications; I10 Essential (primary) hypertension
CPT/HCPCS: 73560; 76775; 80048; 81001; 82540; 82565; 82962; 83036; 83735; 84100; 84155; 84300; 84520; 85025; 86850; 86900; 86901; 86920; 87070; 87075; 87081; 87086; 87102; 87116; 88300; 88304; 88331; 97110; 97116; 97161; 97165; 97530; C1776